=== PATIENT | female | born 1935 | race Caucasian/White ===

== ENCOUNTER → 2016-11-02 | Outpatient (CLI) | payer MEDICARE, OTHER ==
[~2016-11-02] MED LIST: MELO7.5T PO; TAB-TAB PO
[2016-11-02 13:13] LABS: HEMATOCRIT 37.4 % (35.0-46.0); MEAN CELL VOLUME 91.4 FL (80.0-100.0); MEAN CORPUSCULAR HEMOGLOBIN 30.6 PG (27.0-34.0); MEAN CORPUSCULAR HGB CONC 33.4 % (32.0-36.0); PLATELET COUNT 227 TH/MM3 (150-450); RED BLOOD COUNT 4.09 MIL/MM3 (4.00-5.30); RED CELL DISTRIBUTION WIDTH 13.1 % (11.6-17.2); REVIEW FLAG FINAL; WHITE BLOOD COUNT 5.7 TH/MM3 (4.0-11.0)
[2016-11-02 13:48] LABS: ALKALINE PHOSPHATASE 52 U/L (45-117); ALT (GPT) 18 U/L (10-53); ANION GAP 6 MEQ/L (5-15); AST (GOT) 14 U/L (15-37); BICARBONATE 30.1 MEQ/L (21.0-32.0); BLOOD UREA NITROGEN 17 MG/DL (7-18); CHLORIDE 102 MEQ/L (98-107); GLOMERULAR FILTRATION RATE 111 ML/MIN (>89); GLUCOSE,FASTING 88 MG/DL (74-99); HDL CHOLESTEROL 59.3 MG/DL (40.0-60.0); LDL CHOLESTEROL 87 MG/DL (0-99); LDL CHOLESTEROL DIRECT 95 MG/DL (0-99); POTASSIUM 3.6 MEQ/L (3.5-5.1); SODIUM (NA) 138 MEQ/L (136-145); TOTAL BILIRUBIN ADULT 0.5 MG/DL (0.2-1.0)
== END ==
LOC: PLAB 09:18
PROVIDERS: ATTEND Internal Medicine
DX: I10 Essential (primary) hypertension (principal); E78.5 Hyperlipidemia, unspecified
CPT/HCPCS: 36415; 80053; 80061; 83721; 85027

== ENCOUNTER → 2017-04-13 | Outpatient (CLI) | payer MEDICARE, OTHER ==
[2017-04-13 12:01] LABS: ANION GAP 6 MEQ/L (5-15); AST (GOT) 20 U/L (15-37); BICARBONATE 28.6 MEQ/L (21.0-32.0); BLOOD UREA NITROGEN 17 MG/DL (7-18); CHLORIDE 105 MEQ/L (98-107); GLOMERULAR FILTRATION RATE 115 ML/MIN (>89); GLUCOSE,FASTING 84 MG/DL (74-99); POTASSIUM 3.8 MEQ/L (3.5-5.1); SODIUM (NA) 140 MEQ/L (136-145)
[2017-04-13 12:04] LABS: MEAN CELL VOLUME 90.3 FL (80.0-100.0); MEAN CORPUSCULAR HEMOGLOBIN 30.8 PG (27.0-34.0); MEAN CORPUSCULAR HGB CONC 34.2 % (32.0-36.0); PLATELET COUNT 214 TH/MM3 (150-450); RED BLOOD COUNT 3.88 MIL/MM3 (4.00-5.30); RED CELL DISTRIBUTION WIDTH 13.1 % (11.6-17.2); REVIEW FLAG FINAL; WHITE BLOOD COUNT 6.7 TH/MM3 (4.0-11.0)
[2017-04-13 12:08] LABS: ALKALINE PHOSPHATASE 53 U/L (45-117); ALT (GPT) 24 U/L (10-53); HDL CHOLESTEROL 51.5 MG/DL (40.0-60.0); LDL CHOLESTEROL 89 MG/DL (0-99); LDL CHOLESTEROL DIRECT 91 MG/DL (0-99); TOTAL BILIRUBIN ADULT 0.4 MG/DL (0.2-1.0)
== END ==
LOC: PLAB 09:21
PROVIDERS: ATTEND Internal Medicine
DX: I10 Essential (primary) hypertension (principal); E78.5 Hyperlipidemia, unspecified
CPT/HCPCS: 36415; 80053; 80061; 83721; 85027

== ENCOUNTER → 2017-11-06 | Outpatient (CLI) | payer MEDICARE, OTHER ==
[~2017-11-06] MED LIST changes: +ASPI81TA23 PO; +BIOT1000 PO; +CITRTAB16 PO; +DENO60P SQ; -MELO7.5T PO; +MULTTAB67 PO; +POTA10CA PO; +SIMV10TA PO; -TAB-TAB PO; +VITA10002 PO; +VITA100064 PO
[2017-11-06 14:02] LABS: BILIRUBIN, URINE NEG (NEG); BLOOD, URINE NEG (NEG); GLUCOSE,URINE NEG (NEG); KETONE, URINE NEG (NEG); MUCUS URINE FEW /lpf (OCC); NITRITE,URINE NEG (NEG); SQUAMOUS EPITHELIAL CELL URINE <1 /hpf (0-5); URINE COLOR YELLOW (YELLW/STRAW); URINE LEUKOCYTE ESTERASE NEG (NEG)
[2017-11-06 14:07] LABS: ALBUMIN 3.8 GM/DL (3.4-5.0); AST (GOT) 23 U/L (15-37); BICARBONATE 28.8 MEQ/L (21.0-32.0); BLOOD UREA NITROGEN 16 MG/DL (7-18); CALCIUM 8.8 MG/DL (8.5-10.1); CHLORIDE 106 MEQ/L (98-107); CHOLESTEROL 169 MG/DL (120-200); CREATININE 0.51 MG/DL (0.50-1.00); GLOMERULAR FILTRATION RATE 115 ML/MIN (>89); GLUCOSE,FASTING 91 MG/DL (74-99); SODIUM (NA) 139 MEQ/L (136-145)
[2017-11-06 14:09] LABS: HEMATOCRIT 36.6 % (35.0-46.0); HEMOGLOBIN 12.5 GM/DL (11.6-15.3); MEAN CELL VOLUME 92.6 FL (80.0-100.0); MEAN CORPUSCULAR HEMOGLOBIN 31.5 PG (27.0-34.0); MEAN PLATELET VOLUME 8.6 FL (7.0-11.0); PLATELET COUNT 201 TH/MM3 (150-450); RED BLOOD COUNT 3.96 MIL/MM3 (4.00-5.30); RED CELL DISTRIBUTION WIDTH 13.2 % (11.6-17.2); WHITE BLOOD COUNT 7.7 TH/MM3 (4.0-11.0)
[2017-11-06 14:19] LABS: ALKALINE PHOSPHATASE 53 U/L (45-117); ALT (GPT) 25 U/L (10-53); CHOLESTEROL/ HDL RATIO 3.14 RATIO; FREE T4 0.85 NG/DL (0.76-1.46); HDL CHOLESTEROL 53.7 MG/DL (40.0-60.0); LDL CHOLESTEROL 101 MG/DL (0-99); LDL CHOLESTEROL DIRECT 101 MG/DL (0-99); TOTAL BILIRUBIN ADULT 0.5 MG/DL (0.2-1.0); TOTAL PROTEIN 7.2 GM/DL (6.4-8.2); TRIGLYCERIDES 73 MG/DL (42-150)
== END ==
LOC: PLAB 09:34
PROVIDERS: ATTEND Internal Medicine
DX: I10 Essential (primary) hypertension (principal); E78.5 Hyperlipidemia, unspecified; Z13.9 Encounter for screening, unspecified
CPT/HCPCS: 36415; 80053; 80061; 81001; 83721; 84439; 84443; 85027

== ENCOUNTER → 2017-11-22 | Outpatient (CLI) | payer MEDICARE, OTHER | LOC: PLAB 14:45 | PROVIDERS: ATTEND Internal Medicine | DX: Z00.00 Encounter for general adult medical examination without abnormal findings (principal) ==

== ENCOUNTER → 2017-11-23 | Outpatient (CLI) | payer MEDICARE, OTHER | LOC: PLAB 11:13 | PROVIDERS: ATTEND Internal Medicine | DX: E88.9 Metabolic disorder, unspecified (principal) | CPT/HCPCS: 36415; 82523 ==